=== PATIENT | female | born 1940 | race Caucasian/White ===

== ENCOUNTER 2017-11-09 14:48 | Emergency (ER) | payer MEDICARE ==
[2017-11-09 15:29] LABS: BASOPHILS % (AUTO) 0.4 % (0.0-5.0); EOSINOPHILS % (AUTO) 2.7 % (0.0-8.0); HEMATOCRIT 44.4 % (36-48); LYMPHOCYTES % (AUTO) 25.8 % (21.0-51.0); MEAN CORPUSCULAR HEMOGLOBIN 34.4 pg (27.0-33.0); MEAN CORPUSCULAR HGB CONC 34.7 g/dL (32.0-36.0); MONOCYTES % (AUTO) 9.1 % (3.0-13.0); PLATELET COUNT (AUTO) 153 K/uL (130-400); RED BLOOD CELL COUNT(AUTO) 4.48 MIL/uL (4.00-5.50); RED CELL DISTRIBUTION WIDTH 13.7 % (11.0-15.5); WHITE BLOOD COUNT (AUTO) 7.3 K/uL (4.8-10.8)
[2017-11-09 15:35] LABS: APPEARANCE,URINE Cloudy (CLEAR); BILIRUBIN,URINE Negative (NEGATIVE); COLOR,URINE Yellow (YELLOW); GLUCOSE, URINE (UA) Negative (NEGATIVE); KETONES,URINE Negative (NEGATIVE); LEUKOCYTE ESTERASE ,URINE Large (NEGATIVE); NITRATE,URINE Negative (NEGATIVE); OCCULT BLOOD,URINE Negative (NEGATIVE); PROTEIN,URINE Negative (NEGATIVE); UROBILINOGEN,URINE 0.2 mg/dL (0.2-1.0)
[2017-11-09 15:42] LABS: CARBON DIOXIDE 29 mmol/L (21-32); CHLORIDE 101 mmol/L (101-111); CREATININE 0.8 mg/dL (0.5-1.5); GLOMERULAR FILTR. RATE CALC 74 mL/min (>60); GLUCOSE,RANDOM 134 mg/dL (70-105); POTASSIUM 3.5 mmol/L (3.5-5.1); SODIUM SERUM 138 mmol/L (136-145); UREA NITROGEN, BLOOD 13 mg/dL (7-18)
[2017-11-09] MEDS ORDERED: ONDANSETRON HCL MDV 20ML 2 MG/ML VIAL ONE (15:45)
[2017-11-09 15:46] LABS: ALANINE AMINOTRANSFERASE 32 U/L (12-78); ALBUMIN 3.4 g/dL (3.5-5.0); ASPARTATE AMINOTRANSFERASE 27 U/L (10-37); BILIRUBIN,TOTAL 0.7 mg/dL (0.2-1.0); CREATINE KINASE, TOTAL 22 U/L (21-232)
[2017-11-09] MEDS ORDERED: MORPHINE SULFATE 4 MG/1ML SYG ONE (15:46)
[2017-11-09 15:47] LABS: BACTERIA,URINE Few /HPF (None Seen); RBC,URINE None Seen /HPF (0-1); SQUAMOUS EPITHELIAL CELL,UR 30-50 /HPF (0-2); WBC,URINE 26-50 /HPF (0-1)
[2017-11-09 15:48] LABS: TRANSITIONAL EPI CELLS,URINE Moderate /HPF (None Seen)
[2017-11-09 15:58] LABS: LIPASE < 50 U/L (114-286)
[2017-11-09] MEDS ORDERED: ISOVUE-370 50ML VIAL IV ONE (16:45)
[2017-11-09] MEDS ORDERED: CEFTRIAXONE SODIUM 1 GM ONE (17:59)
[2017-11-09] MEDS ORDERED: SODIUM CHLORIDE 0.9% 100 ML IV ONE (17:59)
== END 2017-11-09 19:31 | disposition home or self-care (01) ==
LOC: EDH 14:48
DX: K59.00 Constipation, unspecified (principal); N39.0 Urinary tract infection, site not specified; E11.9 Type 2 diabetes mellitus without complications; I10 Essential (primary) hypertension; E07.9 Disorder of thyroid, unspecified; Z72.0 Tobacco use
CPT/HCPCS: 36415; 74177; 80053; 81001; 82550; 83690; 84484; 85025; 93005; 96374; 96375; 99285; J0696; J2270; Q9967